=== PATIENT | male | born 1960 | race Caucasian/White ===

== ENCOUNTER 2023-11-25 16:45 | Emergency (ER) | payer OTHER, SELFPAY ==
[2023-11-25 16:48] VITALS: BP 142/83
[2023-11-25 16:57] VITALS: BP 145/84
[2023-11-25 17:16] LABS: % Basophils 0.9 % (0-2); % Eosinophils 3.6 % (0-6); % Immature Granulocytes 0.4 % (0-0.5); % Lymphocytes 36.2 % (20.5-51.1); % Monocytes 8.5 % (1.7-9.3); % Neutrophils 50.4 % (42.2-75.2); Absolute Basophils 0.1 10^3/uL (0-0.2); Absolute Eosinophils 0.2 10^3/uL (0-0.7); Absolute Lymphocytes 1.9 10^3/uL (1.2-3.4); Absolute Monocytes 0.5 10^3/uL (0.1-0.6); Absolute Neutrophils 2.7 10^3/uL (1.4-6.5); Hematocrit 39.7 % (39.0-52.0); Hemoglobin 13.6 g/dL (13.0-18.0); Mean Corp Hgb Conc. 34.3 g/dL (33.0-37.0); Mean Corpuscular Hgb 30.5 pg (27.0-31.0); Mean Platelet Volume 10.6 fL (7.4-10.4); Nucleated Red Blood Cells % 0 % (-); Platelet Count 170 10^3/uL (130-400); Red Blood Cell Count 4.46 10^6/uL (4.70-6.10); Red Cell Dist. Width 12.7 % (11.5-14.5); White Blood Cell Count 5.3 10^3/uL (4.8-10.8)
[2023-11-25 17:22] VITALS: BP 129/84
[2023-11-25 17:35] LABS: ALT (SGPT) 29 U/L (0-50); AST (SGOT) 42 U/L (17-59); Albumin 4.2 g/dl (3.5-5.0); Alkaline Phosphatase 59 U/L (38-126); Blood Urea Nitrogen 22 mg/dl (9-20); Calcium 9.5 mg/dl (8.4-10.2); Carbon Dioxide 24 mmol/L (22-30); Chloride 109 mmol/L (98-107); Glucose 80 mg/dl (70-99); Potassium 3.9 mmol/L (3.5-5.1); Sodium 142 mmol/L (135-145); Total Bilirubin 0.8 mg/dl (0.2-1.3); Total Protein 6.5 g/dl (6.3-8.2); eGFR > 60.00
[2023-11-25 17:46] LABS: Troponin I < 0.012 ng/ml
--- NOTE | 2023-11-25 17:47 | ED.GENMED ---
History of Present Illness
General
Chief Complaint: Back Pain
Source: patient, spouse and family
Exam Limitations: none
Time Seen by Provider: 11/25/23 17:29
Nursing documentation reviewed up to this point in time: agreed with
Travel History
Have you had any contact with someone who has COVID-19?: No
Do you have any symptoms of coronavirus? Fever > 100 degrees, chills, cough, shortness of breath, sore throat, loss of taste or smell, muscle aches, or headache?: No
History of Present Illness
History of Present Illness:
63-year-old male presents emergency department complaining of right chest pain and right back pain that feels similar to when he had heart attack, but he does not feel sweaty. Happened 30 minutes ago, and has dissipated.
Past History
Past History
ED Past Medical History: Hypercholesterolemia and Valvular disease (Mitral valve with replacement x2)
ED Past Surgical History: Cardiac (Open heart for MItral valve repair)
Social History
Tobacco: Former smoker
Alcohol: None
Personal:
Living: with family
Review of Systems
Review of Systems
Allergies reviewed?: Yes
All Other Systems: Not applicable
Constitutional: Reports no symptoms
EENT: Reports no symptoms
Respiratory: Reports no symptoms
Cardiac: Reports chest pain
ABD/GI: Reports no symptoms
: Reports no symptoms
Musculoskeletal: Reports no symptoms
Skin: Reports no symptoms
Neurological: Reports no symptoms
Endocrine: Reports no symptoms
Hematologic/Lymphatic: Reports no symptoms
Psychiatric: Reports no symptoms
Phy Exam
Physical Exam
Physical Exam:
Physical Exam
General: no apparent distress, not acutely ill
Neck: supple. no meningeal signs. normal posterior pharynx
Heart: s1/s2 regular rate and rhythm, no murmur. equal radial
pulses.
HEENT: Pupils equal round reactive to light, EOMI
Lungs: no acute respiratory distress. clear bilaterally
Abdomen: normal bowel sounds. not tender. no CVAT
Neuro: alert and oriented. no focal neurological deficits cranial nerves II through XII intact
Skin: no rash
Psychiatric: well kept. interactive and cooperative
Extremities: no edema. no calf tenderness. negative homans. good distal pulses
Course
Orders/Labs/Results
Orders:
Orders
11/25/23 16:46
Electrocardiogram (*1) Urgent
Reason for Study: Chest Pain
EKG- Treatment ONCE
11/25/23 17:03
Complete Blood Count/With Diff Urgent
Comprehensive Metabolic Panel Urgent
Troponin I Stat
11/25/23 19:47
Troponin I Urgent
11/25/23 19:50
Electrocardiogram (*1) Urgent
Reason for Study: Chest Pain
Other Reason for Exam: repeat with trop
EKG- Treatment ONCE
Abnormal Lab Results
11/25/23
17:03
RBC 4.46 L 10^6/uL
(4.70-6.10)
MPV 10.6 H fL
(7.4-10.4)
Chloride 109 H mmol/L
(98-107)
BUN 22 H mg/dl
(9-20)
11/25/23 17:03
11/25/23 17:03
Vital Signs
Initial and Last Documented VS:
Initial Vital Signs
Temp Pulse Resp BP Pulse Ox
98.3 F 98 20 142/83 99
11/25/23 16:48 11/25/23 16:48 11/25/23 16:48 11/25/23 16:48 11/25/23 16:48
Last Documented Vital Signs
Temp Pulse Resp BP Pulse Ox
98.3 F 60 7 123/77 96
11/25/23 16:48 11/25/23 20:00 11/25/23 18:00 11/25/23 20:00 11/25/23 20:00
MDM/Problems Addressed
Differential Diagnosis Includes:
ACS, musculoskeletal pain
MDM/Problems Addressed:
63-year-old male with right-sided chest pain. Resolved. Symptoms lasting about 20 minutes. Nonexertional. Initial troponin negative. No acute findings on EKG. Peak troponin pending. If negative, patient will be discharged with cardiology
follow-up.
Chronic conditions affecting care: CAD
Acute Exacerbation and/or Progression of Chronic Illness: CAD
*Pulse Oximetry
Patient hypoxic: no
*EKG
Interpreted by ED Provider?: Yes
EKG Intrepretation Date: 11/25/23
EKG Intrepretation Time: 16:48
Interpretation: normal
Comparison EKG: no comparison EKG present
Heart Rate: 74
Rate: normal
Rhythm: sinus
[place]: normal axis
Interval: normal interval
QRS Pattern: normal QRS
Ischemia: no ischemia
*Glass Inspector Interpretation
Rate: normal
Interpretation: normal
Heart Rate: 75
Rhythm: sinus
*Critical Care Note
Total Time (30-74mins, 75-104mins- exclusive of procedures): Not Applicable
Data Reviewed
Review of Other/Old Records Reveals: Operative Reports (Prior cardiac catheterization showed diagonal branch lesion, occluded but infarcted, unable to stent 03/04/21)
Source: records
Patient Management
Social determinants of health affecting care: Strong social support
Escalation/DeEscalation of care consider admission/obs:
Admit not indicated
ED Attending Note
-
Portions of this chart may have been created with voice recognition software.� Occasional wrong word or��sound alike� substitutions may have occurred due to the inherent limitations of voice recognition software.
Discharge Plan
Departure
Patient Disposition: Home (Routine Discharge)
Date of Disposition: 11/25/23
Time of Disposition: 20:48
Patient with high blood pressure during this ER visit?: Yes
Condition: Good
Discharge Problem:
Chest pain
Instructions: Chest Pain DCA Follow Up, BLOOD PRESSURE
Prescriptions:
No Action
clopidogrel 75 MG tablet
75 mg PO DAILY Qty: 90 5RF
aspirin 81 MG tablet,chewable
81 mg PO DAILY 0RF
lisinopril 5 MG tablet
5 mg PO DAILY Qty: 90 5RF
metoprolol succinate 25 MG tablet extended release 24 hr
25 mg PO BID Qty: 60 5RF
rosuvastatin 40 MG tablet
40 mg PO QPM Qty: 90 5RF
pantoprazole 40 MG tablet,delayed release (DR/EC)
40 mg PO DAILY Qty: 90 10RF
Referrals:
Jose L Steinberg MD [Family Provider] -
Interventions
Interventions:
*Risk Screen - Suicide Last Done: 11/25/23 16:48
*General Assessment Last Done: 11/25/23 16:48
*Neglect/Abuse Screening Last Done: 11/25/23 16:48
ED- Fall Risk Assessment Last Done: 11/25/23 17:26
*ED COVID-19 Vaccine History Last Done: 11/25/23 17:25
*Nursing Disposition Last Done: 11/25/23 20:58
ED-Musculoskeletal Assessment Last Done: 11/25/23 17:25
Discharge Date and Time
Discharge Date/Time: 11/25/23 20:59
Print Language: FRENCH
[2023-11-25 18:00] VITALS: BP 120/72
[2023-11-25 19:45] VITALS: BP 123/78
[2023-11-25 20:00] VITALS: BP 123/77
[2023-11-25 20:46] LABS: Troponin I < 0.012 ng/ml
== END 2023-11-25 20:59 | disposition home or self-care (01) ==
LOC: EMR 16:45
PROVIDERS: EMERGENCY PHYSICIAN Emergency Medicine; FAMILY PHYSICIAN Family Medicine
DX: R07.89 Other chest pain (principal); M54.9 Dorsalgia, unspecified; I25.10 Atherosclerotic heart disease of native coronary artery without angina pectoris; I10 Essential (primary) hypertension; I48.91 Unspecified atrial fibrillation; K21.9 Gastro-esophageal reflux disease without esophagitis; F41.9 Anxiety disorder, unspecified; F41.0 Panic disorder [episodic paroxysmal anxiety]; E78.00 Pure hypercholesterolemia, unspecified; I25.2 Old myocardial infarction; Z79.82 Long term (current) use of aspirin; Z95.2 Presence of prosthetic heart valve; Z95.5 Presence of coronary angioplasty implant and graft; Z87.891 Personal history of nicotine dependence
CPT/HCPCS: 99284; 80053; 84484; 85025; 93005

== ENCOUNTER → 2024-07-11 08:02 | Outpatient (REF) | payer OTHER, SELFPAY | LOC: RCS 08:02 | PROVIDERS: ATTENDING PHYSICIAN Nuclear Medicine Nuclear Cardiology; FAMILY PHYSICIAN Family Medicine | DX: I48.0 Paroxysmal atrial fibrillation (principal); I25.10 Atherosclerotic heart disease of native coronary artery without angina pectoris | CPT/HCPCS: 93306 ==